=== PATIENT | female | born 1990 | race Caucasian/White ===

== ENCOUNTER 2018-03-21 18:01 | Emergency (ER) | payer BC, MEDICAID ==
[2018-03-21 18:17] VITALS: BP 112/73
[2018-03-21] MEDS ORDERED: Ondansetron 4 MG/2 ML SDV IVPUSH ONE (18:38)
[2018-03-21] MEDS ORDERED: Dextrose 5%-0.9% NaCl 1,000 ML IV ONE ×2 (18:39→19:40)
--- NOTE | 2018-03-21 19:08 | EDM.PDOC ---
ED HPI GENERAL MEDICAL PROBLEM - General Chief Complaint: Gastrointestinal Problem Stated Complaint: VOMITING/DIARRHEA - 20 WKS PG Time Seen by Provider: 03/21/18 18:31 Source of Information: Reports: Patient, RN Notes Reviewed History Limitations: Reports: No Limitations - History of Present Illness INITIAL COMMENTS - FREE TEXT/NARRATIVE: Patient is a 27 year old female who is reportedly 20 weeks who presents to the ED for the evaluation of vomiting and diarrhea that started last night around 6:30 pm. She states that she has had around 4 episodes of diarrhea last night and 3 so far today. She states that the vomiting was happening last night around every 30 min to begin with and has since been around 1/hr. She has not vomited for 3 hours. She denies any weird or questionable food, and she notes that her significant other is sick with the same illness. She states that she did not feel sick before this all started. She has her OB in [place], [place] and was directed to come to the ER if symptoms had not alleviated themselves by tonight. She did take her prescription zofran and phenergan and was not able to keep this down. She denies any chest pain, or shortness of breath, but does have some abdominal/back muscle pain due to the vomiting. She is feeling the baby move appropriately. Generalized Pain Score (Numeric/FACES): 4 - Related Data Allergies Allergy/AdvReac Type Severity Reaction Status Date / Time aspirin Allergy Bleeding Verified 01/07/16 21:20 blood thinners Allergy Bleeding Uncoded 01/07/16 21:20 Home Meds: Home Meds Ondansetron [Zofran ODT] 4 mg PO Q4H PRN 03/21/18 [History] Promethazine [Phenergan] 0.5 ml TOP Q6H PRN 03/21/18 [History] Past Medical History Respiratory History: Reports: Asthma Gastrointestinal History: Reports: GI Bleed Other Gastrointestinal History: from [facility] ELA TE[employer] History: Reports: - Past Surgical History HEENT Surgical History: Reports: Tonsillectomy Social & Family History - Tobacco Use Smoking Status *Q: Never Smoker - Caffeine Use Caffeine Use: Reports: None - Recreational Drug Use Recreational Drug Use: No ED ROS GENERAL - Review of Systems Review Of Systems: See Below Constitutional: Denies: Fever, Chills HEENT: Reports: No Symptoms Respiratory: Reports: No Symptoms Cardiovascular: Reports: No Symptoms Endocrine: Reports: No Symptoms GI/Abdominal: Reports: Diarrhea, Nausea, Vomiting : Reports: No Symptoms Musculoskeletal: Reports: Muscle Pain (from vomiting, generalized to abdomen and back) Skin: Reports: No Symptoms Neurological: Reports: No Symptoms Psychiatric: Reports: No Symptoms Hematologic/Lymphatic: Reports: No Symptoms Immunologic: Reports: No Symptoms ED EXAM - Physical Exam Exam: See Below Exam Limited By: No Limitations General Appearance: Alert, WD/WN, No Apparent Distress Eye Exam: Bilateral Eye: Normal Inspection, PERRL Ears: Normal External Exam Nose: Normal Inspection Throat/Mouth: Normal Inspection, Normal Oropharynx, No Airway Compromise Head: Atraumatic, Normocephalic Neck: Normal Inspection Respiratory/Chest: No Respiratory Distress, Lungs Clear, Normal Breath Sounds, No Accessory Muscle Use, Chest Non-Tender Cardiovascular: Normal Peripheral Pulses, Regular Rate, Rhythm, No Murmur GI/Abdominal Exam: Normal Bowel Sounds, Soft, No Distention, Tender (genralized across abdomen from vomiting). No: Guarding, Rigid, Rebound Heart Tones: Present Heart Tones per Min: 160 Movement: Active Back Exam: Normal Inspection, Full Range of Motion Extremities: Normal Inspection, Normal Capillary Refill Neurological: Alert, Oriented, Normal Cognition, No Motor/Sensory Deficits Psychiatric: Normal Affect, Normal Mood Skin Exam: Warm, Dry, Intact, Normal Color, No Rash Course - Vital Signs Last Recorded V/S: Last Vital Signs Temp 98.5 F 03/21/18 18:14 Pulse 118 H 03/21/18 18:14 Resp 20 03/21/18 18:14 BP 112/73 03/21/18 18:14 Pulse Ox 98 03/21/18 18:14 Orthostatic Blood Pressure [ 102/71 Standing] Orthostatic Blood Pressure [ 104/64 Supine] - Orders/Labs/Meds Orders: Active Orders 24 hr Category Date Time Status Dextrose 5%-0.9% NaCl [Dextrose 5%-Normal Saline] 1,000 Med 03/21/18 18:39 Active ml IV ONETIME Medication Orders Dextrose/Sodium Chloride (Dextrose 5%-Normal Saline) 1,000 mls @ 999 mls/hr IV ONETIME ONE Stop: 03/21/18 19:39 Last Admin: 03/21/18 18:45 Dose: 999 mls/hr Meds: Medications Generic Name Dose Route Start Last Admin Trade Name Freq PRN Reason Stop Dose Admin Dextrose/Sodium Chloride 1,000 mls @ 999 mls/hr 03/21/18 18:39 03/21/18 18:45 Dextrose 5%-Normal Saline IV 03/21/18 19:39 999 mls/hr ONETIME ONE Administration Discontinued Medications Generic Name Dose Route Start Last Admin Trade Name Freq PRN Reason Stop Dose Admin Ondansetron HCl 4 mg 03/21/18 18:38 03/21/18 18:45 Zofran IVPUSH 03/21/18 18:39 4 mg ONETIME ONE Administration - Re-Assessments/Exams Free Text/Narrative Re-Assessment/Exam: 03/21/18 19:12 Pt presents to the ED for the evaluation of multiple episodes of vomiting and diarrhea for around 24 hours. We did start a bolus of D5NS and gave 4mg IV zofran to start with, will order CMP and CBC for further evaluation. 03/21/18 20:25 Labs are back and she is a little dry, her anion gap is 15, after the 2nd liter of D5NS, she may be discharged safely home. Recommendations for bland diet for the next 24-48 hours given. Departure - Departure Time of Disposition: 20:27 Disposition: Home, Self-Care 01 Condition: Fair Clinical Impression: Gastroenteritis - Discharge Information *PRESCRIPTION DRUG MONITORING PROGRAM REVIEWED*: No *COPY OF PRESCRIPTION DRUG MONITORING REPORT IN PATIENT NAOMY: No Instructions: Viral Gastroenteritis, Adult, [id number], Dehydration, Adult, [id number] Referrals: Xi Tinoco MD [Primary Care Provider] - Additional Instructions: You have been evaluated in the ED for your nausea/vomiting/diarrhea. Your labs indicated that you were slightly dehydrated, you have been given 2 liters of IV fluid and 4 mg IV zofran. Please stick to bland diet for the next 24-48 hours to see if this doesn't help alleviated the symptoms as well. Take your zofran at home as directed. Please return to ED if your symptoms change or worsen. - My Orders Last 24 Hours: My Active Orders 03/21/18 18:39 Dextrose 5%-0.9% NaCl [Dextrose 5%-Normal Saline] 1,000 ml IV ONETIME - Assessment/Plan Last 24 Hours: My Active Orders 03/21/18 18:39 Dextrose 5%-0.9% NaCl [Dextrose 5%-Normal Saline] 1,000 ml IV ONETIME
== END 2018-03-21 20:46 | disposition home or self-care (01) ==
LOC: JD.ED 18:01
DX: O99.612 Diseases of the digestive system complicating pregnancy, second trimester (principal); K52.9 Noninfective gastroenteritis and colitis, unspecified; Z88.6 Allergy status to analgesic agent; Z98.890 Other specified postprocedural states; Z3A.20 20 weeks gestation of pregnancy
CPT/HCPCS: 36415; 80053; 85007; 85027; 96361; 96374; 99284; J2405; J7042

== ENCOUNTER 2018-08-11 16:21 | Emergency (ER) | payer BC ==
--- NOTE | 2018-08-11 16:28 | EDM.PDOC ---
ED HPI GENERAL MEDICAL PROBLEM - General Chief Complaint: Neuro Symptoms/Deficits Stated Complaint: 5 DAYS BLURRED VISION,DIZZY,SPINE PAIN Time Seen by Provider: 08/11/18 16:28 Source of Information: Reports: Patient History Limitations: Reports: No Limitations - History of Present Illness INITIAL COMMENTS - FREE TEXT/NARRATIVE: 27-year-old female who is 5 days presents to the ED feeling unwell. She states she feels lightheaded dizzy but not like she's going to faint. She has blurred vision and difficulty focusing. She doesn't feel like it's DM like she's going to pass out. She states she had a prolonged labor that was induced with Pitocin. 12 hours of labor and delivery of a greater than 9 pound male baby. Placenta had to be manually removed. She reports her lochia is minor. He has breast-feeding. She's had only one bowel movement since getting out of the hospital. She did not have an epidural. She does have diffuse back pain. No nausea or vomiting. No true headache. Vital signs are essentially normal other than a resting tachycardia of 102-10 5/m. Clinically she feels slightly warm to palpation to me. She denies that she required a Abebe catheter. Onset: Gradual Onset Date: 08/09/18 Duration: Day(s): (Not feeling well the last couple of days.), Intermittent, Waxing/Waning Location: Reports: Generalized (Generalized sense of illness. Blurred vision difficulty focusing at times.) Quality: Reports: Other Severity: Moderate (Weakness generalized.) Improves with: Reports: None Worsens with: Reports: Other Context: Reports: Other (5 days of an induced labor with Pitocin.). Denies: Activity, Exercise (Worse with standing.), Lifting, Sick Contact, Trauma Associated Symptoms: Reports: Malaise, Weakness, Other (Blurred vision meaning difficulty focusing at times.). 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: Acetaminophen, Other (see below) (Reports lochia is much less than last delivery.) Middle Back Pain Score (Numeric/FACES): 6 - Related Data Allergies Allergy/AdvReac Type Severity Reaction Status Date / Time aspirin Allergy Bleeding Verified 08/11/18 16:31 blood thinners Allergy Bleeding Uncoded 01/07/16 21:20 Home Meds: Home Meds Cephalexin [Keflex] 500 mg PO TID #24 capsule 08/11/18 [Rx] Past Medical History Respiratory History: Reports: Asthma Gastrointestinal History: Reports: GI Bleed Other Gastrointestinal History: from [facility] PATIENT SAFETY MANAGER History: Reports: Other (See Below) (She presents 5 days .) : 5 Para: 2 LMP (Approximate): Other (See Below) (3 miscarriages and very early with no requirement for D&C. This is according to the patient.) - Past Surgical History HEENT Surgical History: Reports: Tonsillectomy Social & Family History - Caffeine Use Caffeine Use: Reports: None - Living Situation & Occupation Living situation: Reports: ([employer] mom.) Occupation: Unemployed ED ROS GENERAL - Review of Systems Review Of Systems: See Below Constitutional: Reports: Malaise, Weakness, Fatigue, Decreased Appetite. Denies : Fever, Chills HEENT: Reports: Vision Change (Blurred vision he hard to focus on things at times.). Denies: Glasses Respiratory: Reports: No Symptoms Cardiovascular: Reports: No Symptoms Endocrine: Reports: Fatigue GI/Abdominal: Reports: Other (Bowels have been somewhat sluggish since delivery. ) : Reports: Frequency, Other (She appreciates the urine seems to be quite watery. She is drinking water in large quantities also taking Gatorade and other juices.) Musculoskeletal: Reports: Back Pain Skin: Reports: No Symptoms Neurological: Reports: Dizziness, Weakness, Other. Denies: Confusion, Paresthesia, Pre-Existing Deficit, Syncope, Tremors (Blurred vision.), Trouble Speaking Psychiatric: Reports: No Symptoms Hematologic/Lymphatic: Reports: No Symptoms Immunologic: Reports: No Symptoms ED EXAM, NEURO - Physical Exam Exam: See Below Exam Limited By: No Limitations General Appearance: Alert, WD/WN, No Apparent Distress, Other (She has mildly orthostatic with heart rate going from 89-118 with standing. Blood pressure did go up appropriately.) Eye Exam: Bilateral Eye: Normal Inspection, PERRL Throat/Mouth: Other (Tongue is slightly dry and coated.) Neck: Normal Inspection, Supple, Non-Tender. No: Full Range of Motion, Lymphadenopathy (R) Respiratory/Chest: No Respiratory Distress, Normal Breath Sounds, No Accessory Muscle Use, Chest Non-Tender, Respiratory Distress (Mild tachypnea 20/m.) Cardiovascular: No Edema (Resting tachycardia of 103-10 6/m.), No Gallop, No Murmur, No Rub, Tachycardia GI/Abdominal: Normal Bowel Sounds, Soft, Non-Tender, No Organomegaly, No Abnormal Bruit, No Mass, Pelvis Stable Neurological: Alert, Normal Mood/Affect, CN II-XII Intact, Normal Plantar Flexion, Normal Reflexes, No Motor/Sensory Deficits, Oriented x 3 Back Exam: Normal Inspection, Full Range of Motion. No: CVA Tenderness (L), CVA Tenderness (R) Extremities: Normal Inspection, Normal Range of Motion, Non-Tender, No Pedal Edema Psychiatric: Normal Affect, Normal Mood Skin Exam: Warm, Dry, Intact, Normal Color, No Rash, Other (Does feel mildly warm to palpation.) Course - Vital Signs Last Recorded V/S: Last Vital Signs Temp 36.0 C 08/11/18 16:28 Pulse 103 H 08/11/18 16:28 Resp 20 08/11/18 16:28 BP 128/91 H 08/11/18 16:28 Pulse Ox 100 08/11/18 16:28 Orthostatic Blood Pressure [ 123/95 Standing] Orthostatic Blood Pressure [ 120/74 Sitting] Orthostatic Blood Pressure [ 117/75 Supine] - Orders/Labs/Meds Orders: Active Orders 24 hr Category Date Time Status Orthostatic Vital Signs [RC] ASDIRECTED Care 08/11/18 16:27 Active CULTURE URINE [RM] Stat Lab 08/11/18 17:15 Received Dextrose 5%-0.9% NaCl [Dextrose 5%-Normal Saline] 1,000 Med 08/11/18 16:45 Active ml IV ASDIRECTED Medication Orders Dextrose/Sodium Chloride (Dextrose 5%-Normal Saline) 1,000 mls @ 999 mls/hr IV ASDIRECTED RADHA Last Admin: 08/11/18 16:49 Dose: 999 mls/hr Labs: Laboratory Tests 08/11/18 08/11/18 08/11/18 Range/Units 16:50 16:50 17:15 WBC 11.64 H (3.98-10.04) K/mm3 RBC 3.47 L (3.98-5.22) M/mm3 Hgb 9.2 L D (11.2-15.7) gm/L Hct 30.1 L (34.1-44.9) % MCV 86.7 D (79.4-94.8) fl MCH 26.5 (25.6-32.2) pg MCHC 30.6 L (32.2-35.5) g/dl RDW Std Deviation 50.3 H (36.4-46.3) fL Plt Count 275 (182-369) K/mm3 MPV 9.0 L (9.4-12.3) fl Neutrophils % (Manual) 76 H (40-60) % Band Neutrophils % 0 (0-10) % Lymphocytes % (Manual) 15 L (20-40) % Atypical Lymphs % 0 % Monocytes % (Manual) 6 (2-10) % Eosinophils % (Manual) 3 (0.7-5.8) % Basophils % (Manual) 0 L (0.1-1.2) Toxic Granulation 2+ moderate Platelet Estimate Adequate Plt Morphology Comment Normal Hypochromasia 1+ slight Anisocytosis 2+ moderate RBC Morph Comment Not Reportable Sodium 139 (136-145) mEq/L Potassium 3.8 (3.5-5.1) mEq/L Chloride 106 (98-107) mEq/L Carbon Dioxide 23 (21-32) mEq/L Anion Gap 13.8 (5-15) BUN 8 (7-18) mg/dL Creatinine 0.6 (0.55-1.02) mg/dL Est Cr Clr Drug Dosing 102.95 mL/min Estimated GFR (MDRD) > 60 (>60) mL/min BUN/Creatinine Ratio 13.3 L (14-18) Glucose 94 (74-106) mg/dL Calcium 9.1 (8.5-10.1) mg/dL Total Bilirubin 0.1 L (0.2-1.0) mg/dL AST 21 (15-37) U/L ALT 40 (14-59) U/L Alkaline Phosphatase 131 H (46-116) U/L C-Reactive Protein 9.1 H* (<1.0) mg/dL Total Protein 6.2 L (6.4-8.2) g/dl Albumin 2.5 L (3.4-5.0) g/dl Globulin 3.7 gm/dL Albumin/Globulin Ratio 0.7 L (1-2) Urine Color Yellow (Yellow) Urine Appearance Clear (Clear) Urine pH 7.0 (5.0-8.0) Ur Specific [place] 1.010 (1.005-1.030) Urine Protein Negative (Negative) Urine Glucose (UA) Negative (Negative) Urine Ketones Negative (Negative) Urine Occult Blood 3+ H (Negative) Urine Nitrite Negative (Negative) Urine Bilirubin Negative (Negative) Urine Urobilinogen 0.2 (0.2-1.0) Ur Leukocyte Esterase 3+ H (Negative) Urine RBC 10-20 H (0-5) /hpf Urine WBC 20-30 H (0-5) /hpf Ur Epithelial Cells 5-10 H (0-5) /hpf Urine Bacteria Moderate H (FEW) /hpf Urine Mucus Few (FEW) /hpf Urine Other See note Meds: Medications Generic Name Dose Route Start Last Admin Trade Name Freq PRN Reason Stop Dose Admin Dextrose/Sodium Chloride 1,000 mls @ 999 mls/hr 08/11/18 16:45 08/11/18 16:49 Dextrose 5%-Normal Saline IV 999 mls/hr ASDIRECTED RADHA Administration Discontinued Medications Generic Name Dose Route Start Last Admin Trade Name Freq PRN Reason Stop Dose Admin Ceftriaxone Sodium 2 gm/ 100 mls @ 200 mls/hr 08/11/18 18:15 Sodium Chloride IV Q24H RADHA Ceftriaxone Sodium 2 gm/ 100 mls @ 200 mls/hr 08/11/18 18:15 08/11/18 18:21 Sodium Chloride IV 08/11/18 18:44 200 mls/hr ONETIME ONE Administration - Radiology Interpretation Free Text/Narrative:: 27-year-old female presents to the ED with generally not feeling well. She is feeling lightheaded dizzy with some blurred vision i.e. difficult to focus on things at times. She is 5 days . Not clinically appear to be significantly anemic. She is mildly orthostatic. She is breast-feeding. Denies any significant breast tenderness other than what would be anticipated . Feels she's been taking adequate fluids. She is minimally orthostatic with heart rate going from 89-1 18/m with standing. Resting tachycardia of 102-1 over 6/m. She does feel slightly warm to palpation on my assessment but nurses recorded temperature 36. Lungs are clear. Benign abdominal exam. She indicates the lochia is very minimal. She did not have a Abebe catheter at any time during the or . Plan routine labs to be done. Urinalysis as well. IV will be D5 normal saline at open. - Re-Assessments/Exams Free Text/Narrative Re-Assessment/Exam: 08/11/18 18:13 White count is mildly elevated at 11.64 which would not be all that abnormal 5 days . Differential reveals 76% neutrophils and no band cells. Hemoglobin is 9.2 with hematocrit of 30.1. Platelet count is turned 75,000. However shows 2+ moderate granular toxic granulation pattern. Sodium is 139 with a potassium of 3.8. Chloride is 106 with bicarbonate 23. And a gap is 13.8. BUN is 8 with a creatinine of 0.6. BUN/creatinine ratio is 13.3. Glucose is 94. Calcium is 9.1 bilirubin is 0.1. AST is 21 with an ALT of 40. Alk phosphatase is 131 C-reactive protein is elevated at 9.1. Total protein is 6.2 with an albumin fraction of 2.5. Urinalysis shows 3+ occult blood 3+ leukocyte esterase 10-20 RBCs per power field and 20-30 white blood cells per high-power field with moderate bacteria appreciated. Therefore it appears she most likely has a urinary tract infection. Culture ordered. Plan :I'm going to give her Rocephin 2 g IV while she is here. She'll then be discharged on cephalexin 500 mg 3 times a day for 8 more days. He is completed liter of IV fluids and is feeling improved. 08/11/18 19:14 patient is just about done her 2 gm of Rocephin IV. She will be discharged at this time. Departure - Departure Time of Disposition: 19:25 Disposition: Home, Self-Care 01 Condition: Fair Clinical Impression: Upper urinary tract infection - Discharge Information *PRESCRIPTION DRUG MONITORING PROGRAM REVIEWED*: Not Applicable *COPY OF PRESCRIPTION DRUG MONITORING REPORT IN PATIENT NAOMY: Not Applicable Prescriptions: Cephalexin [Keflex] 500 mg PO TID #24 capsule Instructions: Urinary Tract Infection, Adult, [id number] Referrals: Xi Tinoco MD [Primary Care Provider] - Forms: ED Department Discharge Additional Instructions: Evaluation in the emergency room today in regards to not feeling well 5 days post with delivery of a healthy 9 pound baby girl. Chemically you feel slightly warm to palpation and labs revealed a slightly elevated white count with suggestion of infective process. Urinalysis returned positive for an infective process. You're therefore treated with intravenous fluids while in the ED to provide rehydration and given first dose of antibiotic Rocephin 2 g intravenously. He will need to start oral antibiotic tomorrow cephalexin 500 mg 3 times daily for the next 8 days to clear up the infection completely. If not feeling markedly improved in 48-72 hours you need to follow-up with your personal care physician or PATIENT SAFETY MANAGER. - My Orders Last 24 Hours: My Active Orders 08/11/18 16:27 Orthostatic Vital Signs [RC] ASDIRECTED 08/11/18 16:45 Dextrose 5%-0.9% NaCl [Dextrose 5%-Normal Saline] 1,000 ml IV ASDIRECTED 08/11/18 17:15 CULTURE URINE [RM] Stat - Assessment/Plan Last 24 Hours: My Active Orders 08/11/18 16:27 Orthostatic Vital Signs [RC] ASDIRECTED 08/11/18 16:45 Dextrose 5%-0.9% NaCl [Dextrose 5%-Normal Saline] 1,000 ml IV ASDIRECTED 08/11/18 17:15 CULTURE URINE [RM] Stat
[2018-08-11 16:31] VITALS: BP 128/91
[2018-08-11] MEDS ORDERED: Dextrose 5%-0.9% NaCl 1,000 ML IV SCH (16:45)
[2018-08-11] MEDS ORDERED: cefTRIAXone 2 GM in Sodium Chloride 0.9% 100 ML IV ONE (18:15)
[2018-08-11] MEDS ORDERED: cefTRIAXone 2 GM in Sodium Chloride 0.9% 100 ML IV SCH (18:15)
== END 2018-08-11 19:21 | disposition home or self-care (01) ==
LOC: JD.ED 16:21
DX: O86.89 Other specified puerperal infections (principal); Z88.6 Allergy status to analgesic agent
CPT/HCPCS: 36415; 80053; 81001; 85007; 85027; 86140; 87086; 87088; 96361; 96365; 99284; J0696; J7030; J7042

== ENCOUNTER 2021-01-09 15:51 | Emergency (ER) | payer BC, MEDICAID ==
[2021-01-09 16:39] VITALS: BP 124/84; PULSE 133
[2021-01-09] MEDS ORDERED: Sodium Chloride 0.9% 10 ML Syringe FLUSH PRN (16:39)
--- NOTE | 2021-01-09 16:55 | EDM.PDOC ---
ED HPI GENERAL MEDICAL PROBLEM - General Chief Complaint: [facility] Problem Stated Complaint: PG-NOT SURE HOW FAR ALONG/BACK/ABD PAIN Time Seen by Provider: 01/09/21 16:39 Source of Information: Reports: Patient, RN Notes Reviewed History Limitations: Reports: No Limitations - History of Present Illness INITIAL COMMENTS - FREE TEXT/NARRATIVE: Patient is a 30-year-old female who presents to the ER for evaluation of her low back/low abdominal pain in . Patient states that she is not had her menses for about 12 months. She notes that she took 2 test after her first to miss periods but both of these were negative and she is not taken another 1 since last night. This resulted positive. That she felt a little bit dizzy yesterday, which prompted her to take the test. Now having associated low back and low abdomen discomfort. No vaginal bleeding. Patient is a G6, at this time; she has had 3 spontaneous miscarriages. No other sick-like symptoms fevers or chills, cough or shortness of breath. Abdominal Pain Score (Numeric/FACES): 6 - Related Data Allergies Allergy/AdvReac Type Severity Reaction Status Date / Time aspirin Allergy Bleeding Verified 01/09/21 16:40 blood thinners Allergy Bleeding Uncoded 01/07/16 21:20 Home Meds: Home Meds Albuterol [Proventil] 1 dose INH ASDIRECTED 01/09/21 [History] Past Medical History Respiratory History: Reports: Asthma Gastrointestinal History: Reports: GI Bleed Other Gastrointestinal History: from [facility] History: Reports: , Spontaneous (x3) : 6 Para: 2 - Infectious Disease History Infectious Disease History: Reports: Pertussis (Whooping Cough) - Past Surgical History HEENT Surgical History: Reports: Tonsillectomy Social & Family History - Tobacco Use Tobacco Use Status *Q: Never Tobacco User Second Hand Smoke Exposure: No - Caffeine Use Caffeine Use: Reports: None - Recreational Drug Use Recreational Drug Use: No - Living Situation & Occupation Living situation: Reports: ([id number] mom.) Occupation: Unemployed ED ROS GENERAL - Review of Systems Review Of Systems: Comprehensive ROS is negative, except as noted in HPI. ED EXAM - Physical Exam Exam: See Below Exam Limited By: No Limitations General Appearance: Alert, WD/WN, No Apparent Distress Respiratory/Chest: No Respiratory Distress, Lungs Clear, Normal Breath Sounds, No Accessory Muscle Use, Chest Non-Tender Cardiovascular: Normal Peripheral Pulses, Regular Rate, Rhythm, No Edema GI/Abdominal Exam: Normal Bowel Sounds, Soft, No Distention, No Mass, Tender (slight generalized tenderness to low abdomen) Heart Tones: Not [place] Movement: Not Appreciated Extremities: Normal Inspection, Normal Capillary Refill Neurological: Alert, Oriented, Normal Cognition, No Motor/Sensory Deficits Psychiatric: Normal Affect, Normal Mood Skin Exam: Warm, Dry, Intact, Normal Color, No Rash Course - Vital Signs Last Recorded V/S: Last Vital Signs Temp 98.1 F 01/09/21 16:37 Pulse 133 H 01/09/21 16:37 Resp 18 01/09/21 16:37 BP 124/84 01/09/21 16:37 Pulse Ox 99 01/09/21 16:37 - Orders/Labs/Meds Orders: Active Orders 24 hr Category Date Time Status Peripheral IV Care [RC] . DIRECTED Care 01/09/21 16:41 Ordered CULTURE URINE [MREF] Urgent Lab 01/09/21 18:08 Ordered PATIENT RETYPE [BBK] Routine Lab 01/09/21 18:27 Ordered Sodium Chloride 0.9% [Saline Flush] Med 01/09/21 16:39 Ordered 10 ml FLUSH ASDIRECTED PRN Peripheral IV Insertion Adult [OM.PC] Stat Oth 01/09/21 16:39 Ordered Medication Orders Sodium Chloride (Sodium Chloride 0.9% 10 Ml Syringe) 10 ml FLUSH ASDIRECTED PRN PRN Reason: Keep Vein Open Labs: Laboratory Tests 01/09/21 01/09/21 01/09/21 Range/Units 16:39 16:45 17:15 WBC 8.96 (3.98-10.04) K/mm3 RBC 4.25 (3.98-5.22) M/mm3 Hgb 12.9 D (11.2-15.7) gm/dl Hct 40.1 (34.1-44.9) % MCV 94.4 D (79.4-94.8) fl MCH 30.4 (25.6-32.2) pg MCHC 32.2 (32.2-35.5) g/dl RDW Std Deviation 48.0 H (36.4-46.3) fL Plt Count 270 (182-369) K/mm3 MPV 9.2 L (9.4-12.3) fl Neut % (Auto) 67.4 (34.0-71.1) % Lymph % (Auto) 23.1 (19.3-51.7) % [place] % (Auto) 7.9 (4.7-12.5) % Eos % (Auto) 1.2 (0.7-5.8) Baso % (Auto) 0.2 (0.1-1.2) % Neut # (Auto) 6.03 (1.56-6.13) K/mm3 Lymph # (Auto) 2.07 (1.18-3.74) K/mm3 [place] # (Auto) 0.71 H (0.24-0.36) K/mm3 Eos # (Auto) 0.11 (0.04-0.36) K/mm3 Baso # (Auto) 0.02 (0.01-0.08) K/mm3 HCG, Quant 2920.0 mIU/mL Urine Color Yellow (Yellow) Urine Appearance Clear (Clear) Urine pH 6.0 (5.0-8.0) Ur Specific [place] > or = 1.030 (1.005-1.030) Urine Protein Trace H (Negative) Urine Glucose (UA) 3+ H (Negative) Urine Ketones Trace H (Negative) Urine Occult Blood Negative (Negative) Urine Nitrite Negative (Negative) Urine Bilirubin Negative (Negative) Urine Urobilinogen 0.2 (0.2-1.0) Ur Leukocyte Esterase Negative (Negative) Urine RBC 0-5 (0-5) /hpf Urine WBC 5-10 H (0-5) /hpf Ur Epithelial Cells 20-30 H (0-5) /hpf Urine Bacteria Few (FEW) /hpf Urine Mucus Not seen (FEW) /hpf Blood Type 01/09/21 Range/Units 17:15 WBC (3.98-10.04) K/mm3 RBC (3.98-5.22) M/mm3 Hgb (11.2-15.7) gm/dl Hct (34.1-44.9) % MCV (79.4-94.8) fl MCH (25.6-32.2) pg MCHC (32.2-35.5) g/dl RDW Std Deviation (36.4-46.3) fL Plt Count (182-369) K/mm3 MPV (9.4-12.3) fl Neut % (Auto) (34.0-71.1) % Lymph % (Auto) (19.3-51.7) % [place] % (Auto) (4.7-12.5) % Eos % (Auto) (0.7-5.8) Baso % (Auto) (0.1-1.2) % Neut # (Auto) (1.56-6.13) K/mm3 Lymph # (Auto) (1.18-3.74) K/mm3 [place] # (Auto) (0.24-0.36) K/mm3 Eos # (Auto) (0.04-0.36) K/mm3 Baso # (Auto) (0.01-0.08) K/mm3 HCG, Quant mIU/mL Urine Color (Yellow) Urine Appearance (Clear) Urine pH (5.0-8.0) Ur Specific [place] (1.005-1.030) Urine Protein (Negative) Urine Glucose (UA) (Negative) Urine Ketones (Negative) Urine Occult Blood (Negative) Urine Nitrite (Negative) Urine Bilirubin (Negative) Urine Urobilinogen (0.2-1.0) Ur Leukocyte Esterase (Negative) Urine RBC (0-5) /hpf Urine WBC (0-5) /hpf Ur Epithelial Cells (0-5) /hpf Urine Bacteria (FEW) /hpf Urine Mucus (FEW) /hpf Blood Type A POSITIVE Meds: Medications Generic Name Dose Route Start Last Admin Trade Name Freq PRN Reason Stop Dose Admin Sodium Chloride 10 ml 01/09/21 16:39 Sodium Chloride 0.9% 10 Ml Syringe FLUSH ASDIRECTED PRN Keep Vein Open - Re-Assessments/Exams Free Text/Narrative Re-Assessment/Exam: 01/09/21 16:55 Patient presents to the ER for evaluation of her low abdomen/back pain in . We will go ahead and get ultrasound, get some basic labs to include a quantitative hCG, CBC and a urinalysis. Patient's blood type will be taken as well. 01/09/21 18:09 The patient's labs have resulted, CBC is unremarkable, hCG is 2920, urinalysis is suggestive of contamination so culture will be sent. Ultrasound demonstrated multiple small cystic areas seen within the endometrial cavity including the endocervical cavity none of these show a yolk sac or pole at this time, recommend follow-up study in 2 weeks to further evaluate. Patient's blood typing is still pending. We will likely try to get the patient going home with general recommendations. 01/09/21 18:30 Patient's blood type is a positive. I will go over the results with her, have her try some Tylenol at home for pain management and have her follow-up with [facility] sometime in the next 2 weeks for repeat ultrasound and ongoing management. Departure - Departure Time of Disposition: 18:35 Disposition: Home, Self-Care 01 Condition: Good Clinical Impression: Abdominal pain affecting - Discharge Information *PRESCRIPTION DRUG MONITORING PROGRAM REVIEWED*: No *COPY OF PRESCRIPTION DRUG MONITORING REPORT IN PATIENT NAOMY: No Instructions: Abdominal Pain During , [id number] Referrals: PCP,None [Primary Care Provider] - Forms: ED Department Discharge Additional Instructions: You were evaluated in the ER today regarding your abdominal pain/vaginal bleeding in . You did have some labs drawn, and these were within normal limits, your hCG level was 2,920 , your blood type is A+. Your ultrasound demonstrated a few cystic areas within your endometrial cavity, but none of which showed a yolk sac or pole. Likely consistent with very early . Recommend follow-up study in 2 weeks for further evaluation. Recommend that you do not lift anything heavier than a gallon of milk (5 lbs), do not engage in sexual activities, try to get as much pelvic rest as possible for the next few days. Please try not to exert yourself, rest and relax, and take it easy. If you start to have vaginal bleeding and are bleeding through more than 1-2 maxi pads every couple hours, this would be cause for concern to return to the ER for immediate management. Please follow up with your [facility] on Monday for ongoing management please. Please return to the ED at any time if your symptoms change or worsen. Sepsis Event Note (ED) - Focused Exam Vital Signs: Vital Signs Temp Pulse Resp BP Pulse Ox 01/09/21 16:37 98.1 F 133 H 18 124/84 99 - My Orders Last 24 Hours: My Active Orders 01/09/21 16:39 Sodium Chloride 0.9% [Saline Flush] 10 ml FLUSH ASDIRECTED PRN Peripheral IV Insertion Adult [OM.PC] Stat 01/09/21 16:41 Peripheral IV Care [RC] . DIRECTED 01/09/21 18:08 CULTURE URINE [MREF] Urgent 01/09/21 18:27 PATIENT RETYPE [BBK] Routine - Assessment/Plan Last 24 Hours: My Active Orders 01/09/21 16:39 Sodium Chloride 0.9% [Saline Flush] 10 ml FLUSH ASDIRECTED PRN Peripheral IV Insertion Adult [OM.PC] Stat 01/09/21 16:41 Peripheral IV Care [RC] . DIRECTED 01/09/21 18:08 CULTURE URINE [MREF] Urgent 01/09/21 18:27 PATIENT RETYPE [BBK] Routine
--- NOTE | 2021-01-09 17:52 | US ---
First trimester obstetrical ultrasound: Multiple real-time images were obtained transvaginally. Comparison: No prior imaging is available. Multiple small cystic areas are seen within the endometrial cavity including the endocervical cavity. Endometrial cavities show no yolk sac or pole. Right ovary shows a small cyst measuring 2.3 cm which is felt to be physiologic. Left ovary is normal. Impression: 1. Multiple small cystic areas are seen within the endometrial cavity including endocervical cavity. None of these show a yolk sac or pole. Recommend follow-up study in 2 weeks to further evaluate. Diagnostic code #3
== END 2021-01-09 18:51 | disposition home or self-care (01) ==
LOC: JD.ED 15:51
DX: O99.891 Other specified diseases and conditions complicating pregnancy (principal); R10.30 Lower abdominal pain, unspecified; Z88.8 Allergy status to other drugs, medicaments and biological substances; Z3A.00 Weeks of gestation of pregnancy not specified
CPT/HCPCS: 36415; 76817; 76817-26; 81001; 84702; 85025; 86900; 86901; 87086; 99284; 99284-25